=== PATIENT | female | born 1995 | race Caucasian/White ===

== ENCOUNTER 2020-01-22 15:27 | Emergency (ER) | payer OTHER, MEDICAID, SELFPAY ==
[2020-01-22 15:37] VITALS: BP 144/90; PULSE 103; RESP 22; TEMP 37.4; O2SAT 96
--- NOTE | 2020-01-22 17:03 | ED.URI ---
HPI - URI/Sore Throat General Chief Complaint: Upper Respiratory Infection Stated Complaint: sore throat Time Seen by Provider: 01/22/20 17:03 Source: patient and RN notes reviewed Mode of arrival: ambulatory Limitations: no limitations History of Present Illness HPI Narrative: 24-year-old female who presents to [facility] care with complaints of return of sore throat last p.m.. Patient states she was diagnosed with strep throat approximately 10 days ago and was treated with amoxicillin states that she has missed approximately 2 day doses of her amoxicillin. Patient continues to have extreme sore throat with redness and swelling of throat and enlargement of tonsils and low grade temperature elevation. MD elicited complaint: fever and sore throat Pertinent past history: other (strep throat) Onset (ago): day(s) (1) Consistency: progressively worsening Severity: moderate Pain scale (0-10): 6 Able to tolerate fluids by mouth: Yes Exacerbating factors: swallowing Relieving factors: nothing Associated symptoms: fever and sore throat Treatments prior to arrival: antibiotics Related Data Home Medications Medication Instructions Recorded Confirmed Singulair 01/22/20 amoxicillin 01/22/20 Allergies Allergy/AdvReac Type Severity Reaction Status Date / Time No Known Allergies Allergy Unverified 01/22/20 16:16 Review of Systems Review of Systems: Narrative: CONSTITUTIONAL: positive fever, chills, or sweats. EYES: Denies visual changes, redness, or discharge. ENT: Denies rhinorrhea, congestion, positive sore throat, no otalgia. CARDIOVASCULAR: Denies chest pain, palpitations, or edema. RESPIRATORY: Denies cough or dyspnea. GASTROINTESTINAL: Denies abdominal pain, nausea, vomiting, or diarrhea. GENITOURINARY: Denies dysuria or hematuria. SKIN: Denies rash or itching. MUSCULOSKELETAL: Denies back pain, joint pain, or myalgia. NEUROLOGIC: Denies headache, numbness, or weakness. PSYCHIATRIC: positive history anxiety or depression. [facility] Past Medical History Medical History (Updated 01/25/20 @ 15:25 by Veronica Meeks NP) ADHD Bronchitis Kidney stone induced hypertension UTI (urinary tract infection) Surgical History Surgical History (Updated 01/25/20 @ 15:26 by Veronica Meeks NP) History of surgical removal of ganglion cyst Social History Social History (Updated 01/25/20 @ 15:25 by Veronica Meeks NP) Years smoked: 9 Smoking status: Current every day smoker Tobacco type: cigarettes Living arrangements: with family Gender identity (if verbalized by the patient): Male Comments At time of signature, agree with nursing past medical, surgical, social and family history. There is no relevant family history pertinent to the presenting complaint Exam Narrative: Exam Narrative: GENERAL: Well-appearing, well-nourished, and in no acute distress. HEAD: Normocephalic, atraumatic. EYES: PERRLA and EOMI. ENT: Nares clear, no rhinorrhea or epistaxis. Mucous membranes moist.TMs normal with good light reflex, throat red, no exudate or lesions, tonsils red and swollen NECK: Supple.lymphadenopathy CHEST: Clear to auscultation. No respiratory distress.SAO2 96% on room air HEART: Regular rate and rhythm. No murmur heard. Normal peripheral pulses. ABDOMEN: Soft, nontender, nondistended, normal active bowel sounds. EXTREMITIES: Normal range of motion. No edema. SKIN: Warm, dry, no rash. NEURO: No focal deficits. Alert and oriented x3. Course Vital Signs Vital signs: Vital Signs Temperature 37.4 C 01/22/20 15:37 Pulse Rate 103 H 01/22/20 15:37 Respiratory Rate 22 H 01/22/20 15:37 Blood Pressure 144/90 H 01/22/20 15:37 Pulse Oximetry 96 01/22/20 15:37 Temperature 37.4 C 01/22/20 15:37 Pulse Rate 103 H 01/22/20 15:37 Respiratory Rate 22 H 01/22/20 15:37 Blood Pressure 144/90 H 01/22/20 15:37 Pulse Oximetry 96 01/22/20 15:37 MDM - URI/Sore Throat Differential Diag
== END 2020-01-22 17:20 | disposition home or self-care (01) ==
PROVIDERS: Emergency Provider Registered Nurse
DX: J02.0 Streptococcal pharyngitis (principal); F17.210 Nicotine dependence, cigarettes, uncomplicated
CPT/HCPCS: 87880; 99213; G0463

== ENCOUNTER 2020-05-20 10:36 | Emergency (ER) | payer OTHER, MEDICAID, SELFPAY ==
--- NOTE | ~2020-05-20 | XR_ITS ---
EXAMINATION: XR chest 2V DATE: 05/20/2020 11:31 INDICATION: Cough, chills and body aches TECHNIQUE: frontal and lateral views of the chest were obtained. COMPARISON: Chest radiograph dated 07/21/2015 FINDINGS: The lungs remain clear with no focal airspace opacities, pulmonary edema, pleural effusion or pneumot horax. The cardiomediastinal silhouette is normal. Visualized bones and soft tissues are unremarkable . IMPRESSION: 1. No acute cardiopulmonary disease. Reviewed, dictated and finalized at location A.
[2020-05-20 10:48] VITALS: BP 139/79; PULSE 114; RESP 20; TEMP 37.2; O2SAT 94
--- NOTE | 2020-05-20 11:19 | ED.URI ---
HPI - URI/Sore Throat General Chief Complaint: Upper Respiratory Infection Stated Complaint: throat chills and aches Time Seen by Provider: 05/20/20 10:53 Source: patient and RN notes reviewed Mode of arrival: ambulatory Limitations: no limitations History of Present Illness HPI Narrative: Patient presents today complaining of a sore throat and subjective fever since yesterday afternoon. Patient also has a cough, but states she coughs, all the time due to her smoking. She smokes 1 pack/day x 14 years. She does report some shortness of breath in the mornings, but this improves throughout the day. Her cough is productive. States she has a history of allergy asthma , for which she uses an albuterol inhaler and Singulair. She has been using her albuterol inhaler more frequently. She currently rates her sore throat sick/10 and has tried no other [id number] medications for symptoms prior to arrival. No known hx of COVID-19 exposure. MD elicited complaint: sore throat Related Data Home Medications Medication Instructions Recorded Confirmed Singulair 01/22/20 dextroamphetamine-amphetamine PO 05/20/20 [Adderall XR] escitalopram oxalate mg 05/20/20 Allergies Allergy/AdvReac Type Severity Reaction Status Date / Time No Known Allergies Allergy Verified 05/20/20 11:07 Review of Systems Review of Systems: Narrative: CONSTITUTIONAL: Denies chills, or sweats.+Body aches, subjective fever EYES: Denies visual changes, redness, or discharge. ENT: Denies rhinorrhea, congestion,or otalgia.+Sore throat CARDIOVASCULAR: Denies chest pain, palpitations, or edema. RESPIRATORY: +Cough, shortness of breath in the mornings, wheezing GASTROINTESTINAL: Denies abdominal pain, nausea, vomiting, or diarrhea. GENITOURINARY: Denies dysuria or hematuria. SKIN: Denies rash, itching, or wounds. MUSCULOSKELETAL: Denies back pain, joint pain, or myalgia. NEUROLOGIC: Denies headache, numbness, tingling, or weakness. PSYCH: Denies depression or anxiety. [facility] Past Medical History Medical History (Updated 05/20/20 @ 11:45 by Dilam Cedeno, [employer], [employer]) ADHD Allergy-induced asthma Bronchitis Kidney stone induced hypertension Seasonal allergic conjunctivitis UTI (urinary tract infection) Surgical History Surgical History (Updated 01/25/20 @ 15:26 by Veronica Meeks NP) History of surgical removal of ganglion cyst Social History Social History (Updated 01/25/20 @ 15:25 by Veronica Meeks NP) Years smoked: 9 Smoking status: Current every day smoker Tobacco type: cigarettes Gender identity (if verbalized by the patient): Female Comments At time of signature, I have reviewed and agree with nursing past medical, surgical, social and family history unless otherwise noted. Please see nursing chart for further information. There is no relevant family history pertinent to the presenting complaint Exam Narrative: Exam Narrative: GENERAL: Mildly ill-appearing, well-nourished, and in no acute distress. HEAD: Normocephalic, atraumatic. EYES: EOMI. No redness or drainage. Conjunctivae normal. ENT: Mucous membranes pink and moist. Nares clear. No rhinorrhea. TMs normal bilaterally. Throat mildly erythematous and edematous without exudate. Uvula midline. NECK: Normal AROM. Supple. No lymphadenopathy. CHEST: No respiratory distress. Inspiratory and expiratory wheezing throughout. Diminished in left lower lobe. HEART: Regular rhythm. +Tachycardia. No murmur appreciated. Normal peripheral pulses. MUSCULOSKELETAL: No bony tenderness. EXTREMITIES: Normal range of motion. No edema. SKIN: Warm, dry, no rash. Capillary refill normal. Normal skin turgor. NEURO: No focal deficits. Alert and oriented x3. Gait steady. PSYCH: Normal affect. No signs of depression or anxiety. Course Course Emergency Course: Due to recent exposure and symptoms, patient may have a possible COVID-19 infection. Signs and sympto
== END 2020-05-20 12:01 | disposition home or self-care (01) ==
PROVIDERS: Emergency Provider Nurse Practitioner; PCP Nurse Practitioner Family
DX: Z20.828 Contact with and (suspected) exposure to other viral communicable diseases (principal); J02.9 Acute pharyngitis, unspecified; J40 Bronchitis, not specified as acute or chronic; F17.210 Nicotine dependence, cigarettes, uncomplicated
CPT/HCPCS: 71046; 87081; 87880; 99213; G0463

== ENCOUNTER 2021-01-14 09:56 | Emergency (ER) | payer OTHER, SELFPAY ==
[2021-01-14 10:14] VITALS: BP 105/78; PULSE 78; RESP 18; TEMP 36.2; O2SAT 98
--- NOTE | 2021-01-14 10:24 | ED.URI ---
HPI - URI/Sore Throat General Chief Complaint: Upper Respiratory Infection Stated Complaint: COVID Symptoms Time Seen by Provider: 01/14/21 10:24 Source: patient Mode of arrival: ambulatory Limitations: no limitations History of Present Illness HPI Narrative: Suri Mata is a 25 yo female with no PMH who [facility] with upper respiratory symptoms since Friday, rarely patient in nose or sore throat some mucus in her throat and pain in her left ear, she rates her pain about a 4 out of 10, she sounds congested Related Data Home Medications Medication Instructions Recorded Confirmed dextroamphetamine-amphetamine 10 mg PO DAILY 05/20/20 01/14/21 [Adderall XR] escitalopram oxalate 5 mg PO DAILY 05/20/20 01/14/21 Allergies Allergy/AdvReac Type Severity Reaction Status Date / Time amoxicillin AdvReac Other Verified 01/14/21 10:35 Review of Systems Review of Systems: Narrative: CONSTITUTIONAL: Denies fever, chills, sweats. Has fatigue EYES: Denies visual changes, redness, discharge. ENT: Has rhinorrhea, has congestion, has sore throat, left otalgia. CARDIOVASCULAR: Denies chest pain, palpitations, edema. RESPIRATORY: Denies dyspnea, wheezing, cough GASTROINTESTINAL: Denies abdominal pain, nausea, vomiting, diarrhea. GENITOURINARY: Denies dysuria, hematuria, abnormal discharge SKIN: Denies rash or itching. NEUROLOGIC: Denies numbness, or focal weakness. PSYCHIATRIC: Denies anxiety or depression. 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 HEAD: normocephalic, atraumatic. EYES: Sclera clear/white. Vision is grossly intact. EARS: External ears normal, auditory canals clear and without drainage, TMs normal without perforation. Hearing grossly intact. Pain in front of left ear NOSE: External nose normal without nasal discharge, nares with redness, has rhinorrhea. THROAT: Mucous membranes moist, posterior pharynx very very erythematous with mild edema; left submandibular lymph node is enlarged and tender NECK: Neck supple, CARDIOVASCULAR: Regular rate and rhythm without murmurs, gallops, or rubs. RESPIRATORY: Clear to auscultation. Breath sounds equal bilaterally. No wheezes, rales, or rhonchi. GASTROINTESTINAL: Abdomen soft, SKIN: warm, intact with no suspicious lesions or rash, good texture and turgor. NEURO: awake, alert, and oriented to person, place and time. There were no obvious focal neurologic abnormalities. Steady gait EXTREMITIES: Normal range of motion. BACK: Nontender without deformity Course Course Emergency Course: [facility] with upper respiratory symptoms that started on Friday which include nasal congestion sore throat and fatigue Rapid Covid test -neg PCR Covid done and sent Strep test -neg Started on zyetec, mucinex, prednisone, viscous lidocaine, tessalon perles Patient to quarantine awaiting PCR results Vital Signs Vital signs: Vital Signs Temperature 97.2 F L 01/14/21 10:14 Pulse Rate 78 01/14/21 10:14 Respiratory Rate 18 01/14/21 10:14 Blood Pressure 105/78 01/14/21 10:14 Pulse Oximetry 98 01/14/21 10:14 Temperature 97.2 F L 01/14/21 10:14 Pulse Rate 78 01/14/21 10:14 Respiratory Rate 18 01/14/21 10:14 Blood Pressure 105/78 0
[2021-01-15 18:21] LABS: SARS-CoV-2 RNA PCR Negative
== END 2021-01-14 10:56 | disposition home or self-care (01) ==
PROVIDERS: Emergency Provider Nurse Practitioner; PCP Nurse Practitioner Family
DX: J02.9 Acute pharyngitis, unspecified (principal); J06.9 Acute upper respiratory infection, unspecified; Z20.822 Contact with and (suspected) exposure to COVID-19; F17.200 Nicotine dependence, unspecified, uncomplicated; J45.909 Unspecified asthma, uncomplicated; F90.9 Attention-deficit hyperactivity disorder, unspecified type
CPT/HCPCS: 87081; 87426; 87880; 99213; C9803; G0463; U0003; U0005

== ENCOUNTER 2021-03-11 11:09 | Emergency (ER) | payer OTHER, SELFPAY ==
[2021-03-11 11:13] VITALS: BP 114/68; PULSE 89; RESP 20; TEMP 36.6; O2SAT 100
--- NOTE | 2021-03-11 11:15 | ED.URI ---
HPI - URI/Sore Throat General Chief Complaint: Upper Respiratory Infection Stated Complaint: sore throat/body aches/cough Time Seen by Provider: 03/11/21 11:30 Source: patient and RN notes reviewed Mode of arrival: ambulatory Limitations: no limitations History of Present Illness HPI Narrative: 25-year-old female presents with concern for cough, sore throat, body aches that started yesterday. Reports postnasal drainage, rhinorrhea. She denies fever, chills, sweats, loss of sense of taste or smell. Reports her boyfriend has similar symptoms, however has not been diagnosed with Covid or strep throat. She denies any [id number] medical interventions. MD elicited complaint: cough Related Data Home Medications Medication Instructions Recorded Confirmed dextroamphetamine-amphetamine 10 mg PO DAILY 05/20/20 03/11/21 [Adderall XR] escitalopram oxalate 5 mg PO DAILY 05/20/20 03/11/21 Allergies Allergy/AdvReac Type Severity Reaction Status Date / Time amoxicillin AdvReac Other Verified 03/11/21 11:13 Review of Systems Review of Systems: Narrative: CONSTITUTIONAL: Denies malaise, chills, sweats, or fever. EYES: Denies visual changes, redness, or discharge. ENT: Reports rhinorrhea, sore throat. Denies congestion, sinus pain, otalgia CARDIOVASCULAR: Denies chest pain, palpitations, or edema. RESPIRATORY: Reports cough. Denies dyspnea. GASTROINTESTINAL: Denies abdominal pain, nausea, vomiting, diarrhea SKIN: Denies rash or itching. MUSCULOSKELETAL: Denies myalgia. NEUROLOGIC: Denies headache. All systems reviewed & are unremarkable except as noted in HPI and below PMFSH Past Medical History Medical History ADHD Allergy-induced asthma Bronchitis Kidney stone induced hypertension Seasonal allergic conjunctivitis UTI (urinary tract infection) Surgical History Surgical History History of surgical removal of ganglion cyst Social History Social History (Updated 01/14/21 @ 10:33 by Genny Baird CNP) Years smoked: 9 Smoking status: Current every day smoker Tobacco type: e-cigarettes/vaping Gender identity (if verbalized by the patient): Female Comments At time of signature, agree with nursing past medical, surgical, social and family history. There is no relevant family history pertinent to the presenting complaint Exam Narrative: Exam Narrative: GENERAL: Well-appearing, well-nourished, and in no acute distress. HEAD: Normocephalic EYES: PERRLA, conjunctivae clear ENT: Nares clear, turbinates erythematous, clear discharge. Mucous membranes moist. TM pearly nance with sharp light reflex bilaterally; no tragal tenderness. Oropharynx erythematous without lesions. Tonsils not enlarged and without exudate, no drooling, no hoarseness, no trismus, uvula midline. NECK: Supple. No lymphadenopathy CHEST: Clear to auscultation, breath sounds equal. No wheezing, rhonchi, rales, or stridor. No respiratory distress, speaks in full sentences. HEART: Regular rate and rhythm. No murmur heard. SKIN: Warm, dry, no rash. NEURO: Alert and oriented x3. PSYCH: Normal mood and affect Course Course Emergency Course: Patient is aware of diagnosis, understands and agrees to treatment plan. Anticipatory guidance given. Patient agrees to follow-up as directed and is aware of reasons to seek care at the emergency department. Portions of this record may have been created with voice recognition software Vital Signs Vital signs: Vital Signs Temperature 97.9 F 03/11/21 11:13 Pulse Rate 89 03/11/21 11:13 Respiratory Rate 03/11/21 11:13 Blood Pressure 114/68 03/11/21 11:13 Pulse Oximetry 100 03/11/21 11:13 Temperature 97.9 F 03/11/21 11:13 Pulse Rate 89 03/11/21 11:13 Respiratory Rate 03/11/21 11:13 Blood Pressure 114/68 03/11/21 11:13 Pulse Oximetry 100 03/11/21 11:13
[2021-03-12 19:57] LABS: SARS-CoV-2 RNA PCR Negative
== END 2021-03-11 11:54 | disposition home or self-care (01) ==
PROVIDERS: Emergency Provider Nurse Practitioner; PCP Nurse Practitioner Family
DX: J02.9 Acute pharyngitis, unspecified (principal); J06.9 Acute upper respiratory infection, unspecified; Z20.822 Contact with and (suspected) exposure to COVID-19; F90.9 Attention-deficit hyperactivity disorder, unspecified type; J45.990 Exercise induced bronchospasm; F17.200 Nicotine dependence, unspecified, uncomplicated
CPT/HCPCS: 87081; 87426; 87804; 87880; 99213; C9803; G0463; U0003; U0005

== ENCOUNTER 2022-02-01 04:33 | Day surgery (SDC) | payer OTHER, SELFPAY ==
--- NOTE | 2022-01-31 16:59 | PC.NURSE ---
Report to the Outpatient Waiting Room, entrance under the green pavilion located off [facility], at time __1100 on date __02/01/22 . OR Time: _1299 . - You and your visitor will be asked a series of questions to screen for COVID 19 for your protection. - A mask is required within the hospital. Preoperative COVID Testing Requirements: No COVID Test needed if: (proof is required; if not received patient will have Rapid Test prior to entry) - Patient has received COVID Vaccine at least 14 days prior to procedure date or - Patient has positive COVID test result within last 90 days of surgery date. COVID Test needed if above criteria is not met If not COVID vaccinated a COVID test must be conducted within 72 hours of surgery and patient is asked to isolate self from time of testing until procedure. You will go to the [facility] for your COVID testing. The [facility] site is located at the corner of [address] from [facility]. You will only be called if COVID results are positive and your surgeon may reschedule your elective surgery date. Patients may have clear liquids (water, carbonated beverages, clear teas, apple juice) until 3 hours prior to surgery with a maximum of 20 ounces. - No food from midnight until time of surgery - Infants may have breast milk until 4 hours before surgery, infant formula 6 hours prior to surgery. - Children will be allowed to drink immediately following surgery. If applicable, please bring a bottle or sippy cup to assist with drinking. Juice, water, soda, and popsicles are readily available. For infants on formula, please bring formula the day of surgery. Pacifiers are allowed. Take the following medications with a SIP of water the morning of surgery: NONE Medications to discontinue per physician NONE Date to take last dose____NONE Please no make-up, nail german, hairspray, perfume, deodorant, or body powder the day of surgery. No jewelry (including any body piercings) or valuables the day of surgery, leave them at home. Please take a shower or bath the night before, or the morning of, surgery with an antibacterial soap. Wear comfortable, loose fitting clothing. Children are encouraged to wear pajamas. - Jewelry must be removed prior to entering the operating room. Rings and piercings that are not removed may be cut off. - The hospital will not accept responsibility for valuables. - Please leave all valuables, including medications, at home the day of surgery. If you are going home after surgery, a licensed driver operator must drive you home. - NO public transportation without another adult. - We recommend that an adult stay with you for 24 hours following discharge. - We also recommend that you do not drive, make important decision, drink alcoholic beverages, or take any drugs that were not prescribed by your health care provider for at least 24 hours after your discharge time. For Pediatric surgeries, we recommend two adults accompany the child home (only one inside the building at this time). One visitor will be allowed to accompany the patient into the hospital. Patients visitor will be instructed to remain with patient at all times or leave the building. We will allow the visitor to come back to the postoperative area when patient is ready. Follow any additional instructions given to you from your surgeon. Telephone instructions given to PATIENT and asked if any additional questions and then verbalized understanding. Patient advised to call surgeon office or pre surgery nurse liaison [phone] if any additional questions.
[2022-01-31 17:07] VITALS: BMI 35.6
--- NOTE | 2022-02-01 10:43 | PM.IMHP ---
H&P: HPI History of Present Illness Date/Time: 02/01/22 10:43 Chief Complaint: early loss Narrative: 26 yo who presents for suction D&C for early loss. Pt [facility] and viability US. She states they identified a gestational sac but no YS or embryo. Pt has a 2 wk follow up that showed no interval growth. Pt then presented to me. We started to trend her Beta HCG levels and noted they were decreasing. Follow up US in our office again showed a GS with no YS or embryo. Pt started having some bleeding as well. Review of Systems Cardiovascular: Cardiovascular: Denies chest pain, Denies leg edema, Denies palpitations, Denies dyspnea and Denies dyspnea on exertion Respiratory: Respiratory: Denies cough, Denies dyspnea and Denies dyspnea on exertion Gastrointestinal: Gastrointestinal: Denies abdominal pain, Denies constipation, Denies diarrhea, Denies nausea and Denies vomiting Genitourinary: Genitourinary: Denies hematuria, Denies urinary frequency, Denies dysuria, Denies pelvic pain, Denies urinary incontinence and Denies vaginal discharge Neurologic: Reports system reviewed and no additional complaints, except as documented Psychiatric: Psychiatric: Reports no additional psychiatric complaints Endocrine: Endocrine: Denies palpitations PMFSH Past Medical History Medical History ADHD Allergy-induced asthma Bronchitis Kidney stone induced hypertension Seasonal allergic conjunctivitis UTI (urinary tract infection) Surgical History Surgical History History of surgical removal of ganglion cyst Social History Social History (Updated 01/14/21 @ 10:33 by Genny Baird CNP) Years smoked: 9 Smoking status: Never smoker Tobacco type: e-cigarettes/vaping Alcohol intake: current Drinks per week: 1 Substance use: current Substance use type: marijuana Other substance usage details: 5 TIMES A WEEK Living arrangements: with family Gender identity (if verbalized by the patient): Female Spiritual care concerns: No Meds Home Medications and Allergies Home Medications Medication Instructions Recorded Confirmed Type No Home Medications 01/31/22 01/31/22 History Allergies Allergy/AdvReac Type Severity Reaction Status Date / Time No Known Allergies Allergy Verified 01/31/22 16:54 Exam Const: General: no acute distress Eyes: EOM: EOMs intact bilaterally Neck: Neck: supple Thyroid: thyroid normal Chest: Breast/axilla inspection: normal inspection of the breasts Breast/axilla palpation: normal palpation of the breasts, normal palpation of the axillae and no axillary lymphadenopathy Resp: Effort & Inspection: normal respiratory effort Auscultation: clear to auscultation bilaterally Cardio: Rate: regular rate Rhythm: regular rhythm GI: Inspection: non-distended GI Palp: Yes Soft to palpation, No Tenderness to palpation present (GI) and No Guarding due to palpation present (GI) Auscultation: normal bowel sounds : General: No bladder normal to palpation External Female Exam: normal external appearance Speculum Exam - Vagina: normal vaginal discharge and No vaginal bleeding Speculum Exam - Cervix: nontender Bimanual exam- vagina & uterus: No bladder normal to palpation and No Cervical tenderness present OB/external & speculum: No vaginal bleeding Skin: General skin exam: normal color and no rashes or lesions noted Neuro: Cognition (Neuro): normal cognition Speech: normal speech Extrem: General: normal to inspection and no edema Psych: Mental Status: mental status grossly normal Affect: normal affect Assessment and Plan Assessment and plan (1) Incomplete : Code(s): O03.4 - Incomplete spontaneous without complication Status: Acute Assessment and Plan: Pt has
[2022-02-01 11:20] VITALS: BP 113/61; PULSE 73; RESP 18; TEMP 36.7; O2SAT 100
[2022-02-01] MEDS: LACTATED RINGERS 1,000 ML 30 ML IV CONT (11:29)
[2022-02-01] MEDS: ACETAMINOPHEN 500 MG TABLET 1000 MG PO (11:30)
[2022-02-01 11:40] LABS: Hematocrit 39.1 % (37.0-47.0); Hemoglobin 13.4 g/dL (12.0-15.0)
--- NOTE | 2022-02-01 11:42 | P.PNAN_ITS ---
Anes - Initial Pre Proc Eval Procedure: Operation Date: 02/01/22 13:00 Proposed Procedures p Suction Dilation and Curettage - Frantz Keenan MD Date/Time: 02/01/22 11:42 Surgeon: Frantz Keenan MD Pre Op Diagnosis: missed ab Patient Data Age: 26 Gender: F Height: 1.68 m Weight: 120.8 kg Last Vital Signs Temp 36.7 C 02/01/22 11:20 Pulse 73 02/01/22 11:20 Resp 18 02/01/22 11:20 BP 113/61 02/01/22 11:20 Pulse Ox 100 02/01/22 11:20 Allergies Allergy/AdvReac Type Severity Reaction Status Date / Time No Known Allergies Allergy Verified 02/01/22 11:10 Home Medications Medication Instructions Recorded Confirmed Type No Home Medications 01/31/22 02/01/22 History Laboratory Tests 02/01/22 11:23 Hgb Pending Hct Pending Patient hx anesthesia problems: none Family hx anesthesia problems: none Results Review: All pre-operative results and documents have been reviewed as part of the pre-operative evaluation. [facility] Past Medical History Medical History ADHD Allergy-induced asthma Bronchitis Kidney stone induced hypertension Seasonal allergic conjunctivitis UTI (urinary tract infection) Surgical History Surgical History History of surgical removal of ganglion cyst Social History Social History (Updated 02/01/22 @ 11:42 by Jean Olsen MD) Years smoked: 9 Smoking status: Current every day smoker Tobacco type: e-cigarettes/vaping Alcohol intake: current Drinks per week: 1 Substance use: current Substance use type: marijuana Other substance usage details: 5 TIMES A WEEK Living arrangements: with family Gender identity (if verbalized by the patient): Female Spiritual care concerns: No Anes - Eval Final PreProcedure Day of Procedure 02/01/22 11:42 Patient weight: morbidly obese Heart: regular rate and rhythm Lungs: clear to auscultation Airway: Mallampati scale Neurological: alert and oriented Last oral intake: >/= 8 hours ASA classification: III Emergent: no Anesthetic plan: proceed Anesthesia type and monitoring: general GIVS and standard monitoring Results Review: All pre-operative results and documents have been reviewed as part of the pre-operative evaluation. Informed Consent: The patient's anesthetic plan and its attendant risks and benefits were discussed with the patient/family/POA. Questions were solicited and answers provided to the satisfaction of the patient/family/POA.
--- NOTE | 2022-02-01 12:55 | WPDHPUPDATE1 ---
History and Physical Update Update Date/Time: 02/01/22 12:55 History and Physical has been reviewed, including an updated exam of the patient. There are NO changes in the patient's condition. Risks, benefits, and alternatives have been discussed and questions answered. Patient agrees to proceed with procedure.
[2022-02-01 13:26] VITALS: BP 136/81; PULSE 83; RESP 16; O2SAT 95
--- NOTE | 2022-02-01 13:26 | P.OP_ITS ---
Procedure Note - Detailed Date of Procedure 02/01/22 Pre-op Diagnosis early loss Post-op Diagnosis Same Procedure Performed Suction Dilation & curettage Surgeon Frantz Keenan MD Anesthesia General Indications spontaneous missed on pelvic US Findings intrauterine products of conception Description of Procedure The patient was taken to the operating room after a missed had been noted on on transvaginal ultrasound. The risks, benefits and alternatives of the procedure were reviewed with the patient and informed consent was obtained. The patient was taken to the OR and anesthesia was noted to be adequate. The patient was placed in the dorsolithotomy position. Pelvic exam was performed with findings noted above. The patient was prepped and draped in the usual sterile fashion. Sterile speculum was placed in the vagina and the cervix was grasped with a tenaculum. Paracervical block was performed with 1% lidocaine. The cervix was dilated further to allow for passage of a 8 mm suction curette. The 8 mm suction curette was gently advanced to the fundus, suction was activated, and the tip was rotated while being withdrawn to clear the uterus of products. This suction process was repeated 3 additional times due to the quantity of material in the uterus. The sharp curette was introduced and advanced to the fundus to remove any remaining products. The suction curette was reintroduced one final time to ensure all products had been removed. The tenaculum was removed. Good hemostasis was noted. Instrument, sponge, and sharp counts were correct. Patient tolerated the proced ure well and was taken to the recovery room in stable condition. Estimated Blood Loss 50 Urine Output 400 Packing No Pathology Yes (Products of conception ) Complications No immediate complications Condition Stable Disposition PACU
[2022-02-01 13:45] VITALS: BP 145/81; PULSE 71; RESP 16; O2SAT 98
[2022-02-01] MEDS: oxyCODONE HCL (*CRX) 5 MG TAB IR PO (13:57)
[2022-02-01 14:15] VITALS: BP 128/80; PULSE 64; RESP 16
[2022-02-01] MEDS: RHO(D) IMMUNE GLOBULIN 300 MCG/2 ML SYRINGE IM (14:30)
== END 2022-02-01 14:45 | disposition home or self-care (01) ==
PROVIDERS: PCP Nurse Practitioner Family; Visit Provider Student in an Organized Health Care Education/Training Program
PROC: (CPT 59820; principal; 2022-02-01 13:00)
DX: O02.1 Missed abortion (principal); F90.9 Attention-deficit hyperactivity disorder, unspecified type; F17.290 Nicotine dependence, other tobacco product, uncomplicated; F12.90 Cannabis use, unspecified, uncomplicated
CPT/HCPCS: 59820; 36415; 85014; 85018; 85461; 88305; 90384; A9270; J1100; J1885; J2250; J2270; J2405; J2704; J2790; J7120

== ENCOUNTER 2023-01-09 14:24 | Emergency (ER) | payer OTHER, SELFPAY ==
--- NOTE | 2023-01-09 14:27 | ED.URI ---
HPI - URI/Sore Throat General Chief Complaint: Upper Respiratory Infection Stated Complaint: Cough/Sinus Congestion Time Seen by Provider: 01/09/23 14:27 Source: patient and RN notes reviewed History of Present Illness HPI Narrative: Patient is a 11-year-old female who presents to urgent care with complaints of sinus congestion and cough. Patient states it started on Friday. Reports of some chills but denies any fever, nausea or vomiting. Patient also states that she has been wheezing the last couple of nights. Patient has been taking DayQuil and NyQuil. No other acute complaints. No acute distress noted. Patient aware of the plan of care. Some parts of this dictation were generated by voice recognition software and may contain typographical and/or grammatical inaccuracies. Related Data Home Medications Medication Instructions Recorded Confirmed dulaglutide 0.75 mg/0.5 mL 0.75 mg subcut WEEKLY 01/09/23 01/09/23 subcutaneous pen injector (Trulicity) Allergies Allergy/AdvReac Type Severity Reaction Status Date / Time No Known Allergies Allergy Verified 01/09/23 14:46 Review of Systems Review of Systems: CONSTITUTIONAL: Denies fever, chills, or sweats. EYES: Denies visual changes, redness, or discharge. ENT: Reports of minor sinus pressure/congestion, postnasal drainage CARDIOVASCULAR: Denies chest pain, palpitations, or edema. RESPIRATORY: Reports cough and wheezing GASTROINTESTINAL: Denies abdominal pain, nausea, vomiting, or diarrhea. GENITOURINARY: Denies dysuria or hematuria. SKIN: Denies rash or itching. MUSCULOSKELETAL: Denies back pain, joint pain, or myalgia. NEUROLOGIC: Denies headache, numbness, or weakness. All other systems reviewed are negative, except as documented in HPI. [facility] Past Medical History Medical History ADHD Allergy-induced asthma Bronchitis Kidney stone induced hypertension Seasonal allergic conjunctivitis UTI (urinary tract infection) Surgical History Surgical History History of surgical removal of ganglion cyst Social History Social History (Updated 02/01/22 @ 11:42 by Jean Olsen MD) Years smoked: 9 Smoking status: Current every day smoker Tobacco type: e-cigarettes/vaping Alcohol intake: current Drinks per week: 1 Substance use: current Substance use type: marijuana Other substance usage details: 5 TIMES A WEEK Living arrangements: with family Gender identity (if verbalized by the patient): Female Spiritual care concerns: No Comments At the time of my signature, I reviewed and agree with the nursing past medical, surgical, social, and family history. There is no relevant family history pertinent to the patient complaint. Exam Narrative: GENERAL: This is a well-nourished, well-developed patient, in no apparent distress. HEAD: normocephalic, atraumatic. EYES: PERRL. Sclera clear/white. Vision is grossly intact. EARS: External ears normal, auditory canals clear and without drainage, TMs normal without perforation. Hearing grossly intact. NOSE: External nose normal with no obvious nasal discharge. Mild bilateral erythema cares with clear yellow rhinorrhea THROAT: Mucous membranes moist, posterior pharynx clear. Which is moderate postnasal drainage NECK: Neck supple, non-tender without lymphadenopathy CARDIOVASCULAR: Regular rate and rhythm without murmurs, gallops, or rubs. RESPIRATORY: Inspiratory and expiratory wheezes throughout SKIN: warm, intact with no suspicious lesions or rash, good texture and turgor. NEURO: awake, alert, and oriented to person, place and time. There were no obvious focal neurologic abnormalities. EXTREMITIES: No clubbing, cyanosis, or edema. Course Course Level of Care: Express Care Visit Vital Signs Vital signs: Vital Signs Temperature 97.8 F 01/09/23 14:29 Pulse Rate 99 02/
[2023-01-09 14:29] VITALS: BP 144/88; PULSE 99; RESP 16; TEMP 36.6; O2SAT 100
== END 2023-01-09 14:53 | disposition home or self-care (01) ==
PROVIDERS: Emergency Provider Nurse Practitioner Family; PCP Nurse Practitioner Family
DX: J40 Bronchitis, not specified as acute or chronic (principal); F17.290 Nicotine dependence, other tobacco product, uncomplicated
CPT/HCPCS: 99213; G0463

== ENCOUNTER 2024-05-21 11:46 | Emergency (ER) | payer OTHER, SELFPAY ==
[2024-05-21 11:55] VITALS: BP 144/66; PULSE 97; RESP 16; TEMP 36.4; O2SAT 100
--- NOTE | 2024-05-21 12:29 | ED.GENADULT ---
HPI - General Adult General Chief complaint: Skin/Abscess/Foreign Body Stated complaint: Rash on thighs and vaginal region Source: patient Mode of arrival: ambulatory Limitations: no limitations History of Present Illness HPI narrative: Patient presents for evaluation pruritic rash to the suprapubic region and bilateral inguinal regions since May 15. She had a waxing procedure done prior to that and spent a prolonged amount of time in a wet bathing suit prior to the time of symptom onset. She attempted to treat with hydrocortisone cream without much improvement thereafter. Related Data Home Medications Medication Instructions Recorded Confirmed dulaglutide 0.75 mg/0.5 mL 0.75 mg subcut WEEKLY 01/09/23 01/09/23 subcutaneous pen injector (Trulicity) Allergies Allergy/AdvReac Type Severity Reaction Status Date / Time No Known Allergies Allergy Verified 01/09/23 14:46 Review of Systems Review of Systems: CONSTITUTIONAL: Denies fever, chills, or sweats. EYES: Denies visual changes, redness, or discharge. ENT: Denies rhinorrhea, congestion, sore throat, or otalgia. CARDIOVASCULAR: Denies chest pain, palpitations, or edema. RESPIRATORY: Denies cough or dyspnea. GASTROINTESTINAL: Denies abdominal pain, nausea, vomiting, or diarrhea. GENITOURINARY: Denies dysuria or hematuria. SKIN: Reports pruritic rash to the suprapubic region and bilateral inguinal regions MUSCULOSKELETAL: Denies back pain, joint pain, or myalgia. NEUROLOGIC: Denies headache, numbness, dizziness, or weakness. PSYCHIATRIC: Denies anxiety or depression. [facility] Past Medical History Medical History (Updated 05/21/24 @ 12:32 by PUAL Ortiz, LASHON) ADHD Allergy-induced asthma Bronchitis Kidney stone induced hypertension Seasonal allergic conjunctivitis UTI (urinary tract infection) Surgical History Surgical History H/O lithotripsy History of surgical removal of ganglion cyst Family History Family History Mother Family history non-contributory Social History Social History Years smoked: 9 Smoking status: Current every day smoker Tobacco type: e-cigarettes/vaping Alcohol intake: current Drinks per week: 1 Substance use: current Substance use type: marijuana Other substance usage details: 5 TIMES A WEEK Living arrangements: with family Gender identity (if verbalized by the patient): Female Spiritual care concerns: No Exam Narrative: GENERAL: Well-appearing, well-nourished, and in no acute distress. HEAD: Normocephalic, atraumatic. EYES: PERRLA and EOMI. ENT: Nares clear, no rhinorrhea or epistaxis. Mucous membranes moist. Oropharynx without tonsillar hypertrophy exudate or other lesions. Bilateral TMs pearly nance nonbulging NECK: Supple. No adenopathy or masses. No carotid bruits or JVD CHEST: Clear to auscultation. No respiratory distress. No wheezes rales or rhonchi HEART: Regular rate and rhythm. No murmur heard. Normal peripheral pulses. ABDOMEN: Soft, nontender, nondistended, normal active bowel sounds. EXTREMITIES: Normal range of motion. No edema. SKIN: There is erythema and patchy distribution is to the suprapubic and bilateral inguinal regions with some linear scratch naranjo NEURO: No focal deficits. Alert and oriented x3. PSYCH: Normal mood and affect. Course Course Emergency Course: This is a 28-year-old female who presented for evaluation of pruritic rash to the suprapubic bilateral inguinal regions. Suspect that this is tinea so will provide her with a prescription for ketoconazole. In the event that it is ineffective she can use triamcinolone. Follow-up with primary provider. Go to the ER for worsening symptoms. Patient in agreement plan care. Level of Care: Express Care Visit Vi
== END 2024-05-21 12:34 | disposition home or self-care (01) ==
PROVIDERS: Emergency Provider Nurse Practitioner; PCP Nurse Practitioner Family
DX: L30.9 Dermatitis, unspecified (principal); F17.290 Nicotine dependence, other tobacco product, uncomplicated; F12.90 Cannabis use, unspecified, uncomplicated
CPT/HCPCS: 99213; G0463

== ENCOUNTER 2024-07-20 08:01 | Emergency (ER) | payer MEDICAID, SELFPAY ==
--- NOTE | 2024-07-20 08:03 | ED.URI ---
HPI - URI/Sore Throat General Chief Complaint: Upper Respiratory Infection Stated Complaint: sinus issues Time Seen by Provider: 07/20/24 08:16 Source: patient, RN notes reviewed and old records reviewed Mode of arrival: ambulatory Limitations: no limitations History of Present Illness HPI Narrative: 28-year-old female presents to the [facility] with sinus congestion, pressure, cough, chills that started on Friday Has tried [id number] products with minimal relief. Onset (ago): day(s) (3) Treatments prior to arrival: cold medicine Related Data Allergies Allergy/AdvReac Type Severity Reaction Status Date / Time No Known Allergies Allergy Verified 07/20/24 08:16 Review of Systems Review of Systems: All systems reviewed & are unremarkable except as noted in HPI and below Constitutional: Constitutional: Reports as per HPI and Reports body ache(s) Eyes: Eyes: Reports no additional eye complaints ENT: Reports as per HPI, Reports nasal congestion and Reports sinus pressure Cardiovascular: Cardiovascular: Reports no additional cardiovascular complaints, Denies chest pain and Denies dyspnea Respiratory: Respiratory: Reports as per HPI, Denies chest congestion, Reports cough and Denies dyspnea Gastrointestinal: Gastrointestinal: Reports no additional gastrointestinal complaints, Denies abdominal pain, Denies nausea and Denies vomiting Musculoskeletal: Musculoskeletal: Reports no additional musculoskeletal complaints Integumentary/Breasts: Skin/Breast: Reports system reviewed and no additional complaints, except as docu Neurologic: Reports system reviewed and no additional complaints, except as documented Psychiatric: Psychiatric: Reports no additional psychiatric complaints Allergic/Immunologic: Allergic/Immunologic: Reports no additional allergic/immunologic complaints PMFSH Past Medical History Medical History ADHD Allergy-induced asthma Bronchitis Kidney stone induced hypertension Seasonal allergic conjunctivitis UTI (urinary tract infection) Surgical History Surgical History H/O lithotripsy History of surgical removal of ganglion cyst Family History Family History Mother Family history non-contributory Social History Social History Years smoked: 9 Smoking status: Current every day smoker Tobacco type: e-cigarettes/vaping Alcohol intake: current Drinks per week: 1 Substance use: current Substance use type: marijuana Other substance usage details: 5 TIMES A WEEK Living arrangements: with family Gender identity (if verbalized by the patient): Female Spiritual care concerns: No Comments At the time of my signature, I reviewed and agree with the nursing past medical, surgical, social, and family history. There is no relevant family history pertinent to the patient complaint. Exam Const: General: cooperative, healthy appearing, comfortable, no acute distress, well developed, alert and well nourished Nutritional Appearance: well nourished and obese Orientation/consciousness: patient oriented x3 Limitations: no limitations HENMT: Head: normal to inspection Ears: hearing grossly normal bilaterally, external ears normal, TM's normal bilaterally, EAC's normal, mastoids normal, no periauricular adenopathy and Abnormal EAC present Face/Nose/Sinus: Normal external nose present, Normal nares present, Normal nasal mucous membranes and turbinates present, normal facial exam and face symmetric Face and sinus: normal facial exam and face symmetric Mouth: Yes Normal oral and palatal mucosa present, Yes lip normal and Yes tongue normal Throat: posterior oropharynx normal, tonsils normal, uvula midline and no uvular edema Eyes: General: appearance normal, both eyes
[2024-07-20 08:08] VITALS: BP 126/76; PULSE 91; RESP 20; TEMP 36.9; O2SAT 100
[2024-07-20 08:28] LABS: EDINFLUASCREEN Negative; EDINFLUBSCREEN Negative
== END 2024-07-20 08:27 | disposition home or self-care (01) ==
PROVIDERS: Emergency Provider Nurse Practitioner; PCP Nurse Practitioner Family
DX: U07.1 COVID-19 (principal); F17.290 Nicotine dependence, other tobacco product, uncomplicated; J45.909 Unspecified asthma, uncomplicated
CPT/HCPCS: 87426; 87804; 99213; G0463

== ENCOUNTER 2025-11-08 08:16 | Emergency (ER) | payer OTHER, SELFPAY ==
--- OUTSIDE RECORDS SUMMARY | 2025-11-08 08:18 | XMS_ITS | Clinical Summary ---
Author Organization [facility] Address [address] [place] [address] Phone Care Team Providers Care Underwriting Specialist Name Role Phone Genny Rodriges APRN, CNP Primary Care Provider [phone] Keven Thompson MD Unavailable Allergies No known active allergies Medications phentermine 30 MG Capsule Take 30 mg by mouth daily. Active ondansetron (Zofran ODT) 8 MG TABLET DISPERSIBLE Take 1 Tablet by mouth every 8 hours as needed for Nausea - 1st line. 15 Tablet 07/02/20 21 Active Additional Information Patient not taking.Reported on 02/05/2022 famotidine (PEPCID) 20 MG TabletIndicatio ns:Gastroesopha geal Reflux Disease Take 1 Tablet by mouth every evening. Indications: Gastroesophageal Reflux Disease 30 Tablet 05/15/20 25 Active Active Problems Problem Noted Date Diagnosed Date JABARI (obstructive sleep apnea) 08/08/2021 COVID-19 07/05/2021 Anxiety Migraine Non morbid obesity Resolved Problems Problem Noted Date Diagnosed Date Resolved Date Bronchitis 07/12/2021 Immunizations Immunization Administration Dates Next Due Covid-19, Mrna, Lnp-s, Pf, 30 Mcg/0.3 Ml Dose (Jaime fizer) 10/26/2021 Social History Tobacco Use Types Packs/Day Years Used Date Smoking Tobacco: Former Smokeless Tobacco: Never Comments:vapes Alcohol Use Standard Drinks/Week Comments Yes 0 (1 standard drink = 0.6 oz pur e alcohol) occasional Sexually Active Control Partners Comments Yes Male Comments No Sex and Gender Information Value Date Recorded Sex Assigned at Not on file Legal Sex Female 7:30 PM CDT Gender Identity Not on file Sexual Orientation Not on file Last Filed Vital Signs Vital Sign Reading Time Taken Comments Blood Pressure 134/79 05/15/2025 6:00 PM CDT Pulse 88 05/15/2025 6:00 PM CDT Temperature 36.1 C (97 F) 05/15/2025 4:05 PM CDT Respiratory Rate 13 05/15/2025 6:00 PM CDT Oxygen Saturation 100% 05/15/2025 6:00 PM CDT Inhaled Oxygen Concentration - - Weight 117.5 kg (259 lb) 05/15/2025 4:05 PM CDT Height 167.6 cm (5' 6) 05/15/2025 4:05 PM CDT Body Mass Index 41.8 05/15/2025 4:05 PM CDT Plan of Treatment Health Maintenance Due Date Last Done Comments Hepatitis C Virus (HCV) Screening 1994 Varicella Immunization (2 of 2 - 2-dose childhood series) 1998 1995 Human Papillomavirus (HPV) Immunization (2 - 2-dose series) 01/22/2006 2005 Hepatitis B Immunization (1 of 3 - 19+ 3-dose series) 2013 07/01/2019 Pap Smear 2015 08/31/2010 Cervical Cancer Screening (CCS) 2024 HPV/Cotest 2024 Influenza Immunization (#1) 2025 09/0 11/2018, 12/02/2016 SARS-COV-2 Immunization ( season) 2025 11/20/2021, 10/26/2021 Respiratory Syncytial Virus (RSV) Immunization (Adult) (1 - 1-dose 75+ series) 2069 TdaP Immunization Completed 12/02/2016, 07/15/2015 DTaP/Tdap/Td Immunization Discontinued 2016, 12/02/2016, 07/15/2015 Meningococcal Immunization (ACWY) Aged Out No longer eligible based on patient's age to complete this topic Pneumococcal Immunization Combined Aged Out No longer eligible based on patient's age to complete this topic Rotavirus Immunization Aged Out No lo nger eligible based on patient's age to complete this topic Insurance Advance Directives * Full Code (Latest Code Status on File) Date Activated Date Inactivated Comments 07/04/2021 11:07 PM 07/12/2021 5:35 PM CPR-Full Tr eatment: FULL ARREST: Attempt Resuscitation/CPR wit intubation and mechanical ventilation. PRE-ARREST: Use entire range of life support measures to stabilize the patient. Care Teams Underwriting Specialist Relationship Specialty Start Date End Date Genny Rodriges APRN, CNP PCP - General Family Medicine 07/02/21 Keven Thompson MD [address] [place] [address] Consulting Physician Pulmonary Disease 02/05/22
--- OUTSIDE RECORDS SUMMARY | 2025-11-08 08:18 | XMS_ITS | Clinical Summary ---
Author Organization [facility] Address [address] [place] [address] Care Team Providers Care Assembler Motor Vehicle Name Role Phone Radha Rhoades MD Primary Care Provider [phone] Source Comments [facility],non-owned Affiliates and Associated Physician Practices is amultiple site organization consisting of ambulatory clinics and hospital sitesin [place], [place], [place] and [place]. This disclosure is being madepursuant to the Care Everywhere program and may not contain all information available regarding this patient. 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 [employer] Gender Identity Not on file Sexual Orientation Not on file Plan of Treatment Health Maintenance Due Date Last Done Comments HIV SCREENING 2009 HEPATITIS C SCREENING 07/20/2012 DTAP/TDAP/TD VACCINES (1 - Tdap) 2013 HEPATITIS B VACCINE (1 of 3 - 19+ 3-dose series) 2013 HPV VACCINE (1 - 3-dose SCDM series) 2021 DEPRESSION SCREENING 11/17/2024 COVID-19 VACCINE (3 - 2024-2 6 season) 2025 11/20/2021, 10/26/2021 INFLUENZA VACCINE (#1) 2025 , 12/02/2016 ZOSTER VACCINE (1 of 2) 2044 HIB VACCINE Aged Out No longer eligi ble based on patient's age to complete this topic MENINGOCOCCAL (Group B) VACCINE SHARED DECISION-MAKING Aged Out No longer eligible based on patient's age to complete this topic MENINGOCOCCAL GROUPS A/C/Y/W VACCINE Aged Out No longer eligible b ased on patient's age to complete this topic PNEUMOCOCCAL VACCINE Aged Out No long er eligible based on patient's age to complete this topic Insurance [facility] - [place] [facility] Care Teams Assembler Motor Vehicle Relationship Specialty Start Date End Date Radha Rhoades MD [address] [place] [address] PCP - General 07/16/21
--- OUTSIDE RECORDS SUMMARY | 2025-11-08 08:18 | XMS_ITS | Clinical Summary ---
Author Organization [facility] Address [address] [place] [address] Care Team Providers Care Skills Instructor Name Role Phone Zahira Genny Wilkinson HI LIFT OPERATOR Primary Care Provider [phone] Allergies No known active allergies Medications montelukast (SINGULAIR) 10 mg tabletIndicatio ns:Acute non-recurrent maxillary sinusitis Take 1 tablet (10 mg total) by mouth nightly 30 tablet 3 Active Additional Information Patient not taking.Reported on 06/02/2025 Active Problems Problem Noted Date Diagnosed Date BMI 40.0-44.9, adult 03/04/2024 Migraine with aura and witho ut status migrainosus, not intractable 02/23/2021 Acute bronchitis 11/19/2019 Acute bronchospasm 11/19/2019 Tobacco use disorder 11/19/2019 Immunizations Immunization Administration Dates Next Due Rho (D) Immune Globulin 05/15/2015 Surgical History Surgery Date Site/Laterality Comments CYSTOSCOPY W/ URETERAL STENT PLACEMENT 10/01/2017 Medical History Medical History Date Comments Chronic sinusitis Anxiety Morbid obesity (HCC) Kidney stone Family History Relation Name Status Comments Father Alive Mother Alive Social History Tobacco Use Types Packs/Day Years Used Date Smoking Tobacco: Every Day Cigarettes Smokeless Tobacco: Never Tobacco Cessation:Ready to Q uit: Not Asked; Counseling Given: Not Answered Alcohol Use Standard Drinks/Week Comments No 0 (1 standard drink = 0.6 oz pur e alcohol) AUDIT-C Answer Date Recorded Q1: How often do you have a drink containing alc ohol? Monthly or less 03/04/2024 Q2: How many drinks containi ng alcohol do you have on a typical day when you are drinking? 1 or 2 03/04/2024 Q3: How often do you have si x or more drinks on one occasion? Never 03/04/2024 Personal Safety Answer Date Recorded Have you ever been in or are you currently in a harmful physical or emotional relationship or is someone making you feel afraid or unsafe? 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 Gender Identity Not on file Sexual Orientation Straight 05/31/2021 2: 45 PM CDT Last Filed Vital Signs Vital Sign Reading Time Taken Comments Blood Pressure 112/68 06/02/2025 11:17 AM CDT Pulse 93 06/02/2025 11:17 AM CDT Temperature 36.4 C (97.5 F) 06/02/2025 11:17 AM CDT Respiratory Rate 20 06/02/2025 11:17 AM CDT Oxygen Saturation 99% 06/02/2025 11:17 AM CDT Inhaled Oxygen Concentration - - Weight 108.9 kg (240 lb) 06/02/2025 11:17 AM CDT Height 167.6 cm (5' 6) 06/02/2025 11:17 AM CDT Body Mass Index 38.74 06/02/2025 11:17 AM CDT Plan of Treatment Health Maintenance Due Date Last Done Comments Cervical Cancer Screening 1994 Depression Screening 1994 Hepatitis C Screening 1994 Varicella Vaccines (2 of 2 - 2-dose childhood series) 1998 1995 HPV Vaccines (2 - 2-dose series) 01/22/2006 07/25/20 05 Regular Well Visit/Exam 18-64 2012 Pneumococcal vaccine <65 (1 of 2 - PCV) 2013 Covid-19 Vaccine (2 - season) 07/18/202508/2021 Influenza Vaccine (#1) 2025 07/18/2019, 2016 DTaP/Tdap/Td Vaccine (4 - Td or Tdap) 06/01/2027 06/01/2017, 12/02/2016, 07/15/2015 Hepatitis B Screening Completed 07/01/2019 Insurance [facility] Care Teams Skills Instructor Relationship Specialty Start Date End Date Rodriges, Genny Wilkinson NP [address] [place] [address] PCP - General 09/08/19
--- OUTSIDE RECORDS SUMMARY | 2025-11-08 08:18 | XMS_ITS | Encounter Summary ---
Author Organization [facility] Address [address] [place] [address] Care Team Providers Care Mixing Machine Operator Name Role Phone Radha Rhoades MD Primary Care Provider [phone] Reason for Visit * Reason Onset Date Comments Appointment 01/06/2015 Patient canceled appointment said she just started a new job. We offered her a new appointment 01/13/14, patient was unable to do. I gave her the phone # to [facility] availability. Patient is scheduled with us for a NT and today she is 12 weeks. Encounter Details Date Type Department Care Team (Late st Contact Info) Description 01/06/2015 Telephone [facility] [address] [place] [address] Alondra Fonseca Appointment (Patient canceled appointment said she just started a new job. We offered her a new appointment 01/13/14, patient was unable to do. [facility]. 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 [place] [address] PCP - General 07/16/21 documented as of this encounter
--- OUTSIDE RECORDS SUMMARY | 2025-11-08 08:18 | XMS_ITS | Clinical Summary ---
Author Organization [facility] Address [address] [place] [address] ERICA Sanchez [address] Phone Care Team Providers Care Helmet Hat Puncher Name Role Phone Patricia Moses MD Primary Care Provider Allergies No known active allergies Medications meclizine (ANTIVERT) 25 mg Oral tablet Take 25 mg by mouth 3 times daily as needed. Active Active Problems Problem Noted Date Diagnosed Date Abnormal vaginal bleeding 09/11/2010 Family History Relation Name Status Comments Brother Alive Father Alive Maternal Grandfather Maternal Grandmother Alive Mother Alive Paternal Grandfather Paternal Grandmother Alive Sister 1 Alive Sister 2 Alive Sister 3 Alive Social History Tobacco Use Types Packs/Day Years Used Date Smoking Tobacco: Every Day Alcohol Use Standard Drinks/Week Comments No 0 (1 standard drink = 0.6 oz pur e alcohol) Comments No Sex and Gender Information Value Date Recorded Sex Assigned at Not on file Legal Sex Female 5:45 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 Gender Identity Not on file Sexual Orientation Not on file Last Filed Vital Signs Vital Sign Reading Time Taken Comments Blood Pressure 130/90 10/20/2012 1:55 PM TUB MENDER Pulse 80 10/20/2012 1:55 PM TUB MENDER Temperature 37.4 C (99.4 F) 10/20/2012 1:55 PM TUB MENDER Respiratory Rate 16 10/20/2012 1:55 PM TUB MENDER Oxygen Saturation - - Inhaled Oxygen Concentration - - Weight 97.1 kg (214 lb) 10/20/2012 1:55 PM TUB MENDER Height 167.6 cm (5' 6) 10/20/2012 1:55 PM TUB MENDER Body Mass Index 34.54 10/20/2012 1:55 PM TUB MENDER Plan of Treatment Health Maintenance Due Date Last Done Comments DTAP/TDAP/TD VACCINES (1 - Tdap) 2013 HEPATITIS B VACCINES (1 of 3 - 19+ 3-dose series) 06/2013 HPV/Cotest (21-29) 08/31/2015 08/31/2010 CERVICAL CANCER SCREENING 2024 HPV/Cotest (30-65) 2024 08/31/2010 PAP SMEAR 2024 08/31/2010 INFLUENZA VACCINE (#1) 2025 HPV VACCINES (No Doses Required) Completed Procedures Procedure Name Priority Date/Time Associated Diagnosis Comments CERV/VAG CYTOPATH, THIN PREP IMAGR RFLX HPV Routine 08/31/2010 11:15 AM CDT from Last 3 Months or Most Recently Relevant to Health Maintenance Results * CERV/VAG CYTOPATH, THIN PREP IMAGR RFLX HPV (08/31/2010 11:15 AM CDT) REPORT STATUS FINAL [facility] CLINICAL INFORMATION [facility] Comment:Information not prov ided LAST MENSTRUAL PERIOD [facility] Comment:INFORMATION NOT PROV IDED PREV PAP: [facility] Comment:INFORMATION NOT PROV IDED PREV BX: [facility] Comment:INFORMATION NOT PROV IDED SOURCE [facility] Comment:Endocervix ADEQUACY: [facility] Comment: Satisfactory for evaluation. Endocervical/transformation zone component present. Age and/or menstrual status not provided INTERPRETATION [facility] Comment:Negative for intraep ithelial lesion or malignancy. COMMENT [facility] Comment: This Pap test has been evaluated with computer assisted technology. Based on the cytology result, reflex High Risk HPV DNA testing was not performed. PARK SUPERINTENDENT: Singular [facility] Comment: RRS, CT(ASCP) Test Performed at: [facility] [address] [place] [address] LENKA WOODS DO 08/31/2010 11:1 5 AM CDT us Patricia Moses MD PATHOLOGY/CYTOLOGY ORDERABLE S Final Result INTERFACE SYSTEM Refer to clinic/hospital department [facility] [address] [place] [address] from Last 3 Months or Most Recently Relevant to Health Maintenance Care Teams Helmet Hat Puncher Relationship Specialty Start Date End Date Patricia Moses MD PCP - General 10/11/09
[2025-11-08 08:19] VITALS: BP 148/94; PULSE 104; RESP 18; TEMP 36.3; O2SAT 99
[2025-11-08 08:40] LABS: EDCOVIDSCREEN Negative (Negative); EDINFLUASCREEN Negative (Negative); EDINFLUBSCREEN Negative (Negative); EDSTREPNEGPOS1 Negative (Negative)
--- NOTE | 2025-11-08 08:58 | ED_ITS ---
HPI - URI/Sore Throat General Chief Complaint: Upper Respiratory Infection Stated Complaint: aches/throat Time Seen by Provider: 11/08/25 08:40 Source: patient and RN notes reviewed Mode of arrival: ambulatory Limitations: no limitations History of Present Illness HPI Narrative: 30-year-old female presents Express Care complaining of sore throat and body aches since yesterday. Patient reports tactile fevers and mild congestion as well. Patient denies any other upper respiratory symptoms, nausea vomiting, diarrhea, chest pain, breathing problems, or other symptoms. Patient denies any significant past medical problems. Related Data Home Medications ?Medication ?Instructions ?Recorded ?Confirmed ?Last Taken ?Type omeprazole 20 mg capsule,delayed mg 11/08/25 Unknown History release spironolactone 100 mg tablet mg 11/08/25 Unknown Hist ory Allergies Allergy/AdvReac Type Severity Reaction Status Date / Time No Known Allergies Allergy Verified 11/08/25 08:28 Review of Systems Review of Systems: CONSTITUTIONAL: Positive for tactile fever and body aches. Negative for chills, or sweats. EYES: Denies visual changes, redness, or discharge. ENT: Denies rhinorrhea, or otalgia. Positive for sore throat and congestion CARDIOVASCULAR: Denies chest pain, palpitations, or edema. RESPIRATORY: Denies cough or dyspnea. GASTROINTESTINAL: Denies abdominal pain, nausea, vomiting, or diarrhea. GENITOURINARY: Denies dysuria or hematuria. SKIN: Denies rash or itching. MUSCULOSKELETAL: Denies back pain, joint pain, or myalgia. NEUROLOGIC: Denies headache, numbness, or weakness. PSYCHIATRIC: Denies anxiety or depression. All other systems reviewed are negative, except as documented in HPI. [facility] Past Medical History Medical History Allergy-induced asthma Seasonal allergic conjunctivitis induced hypertension ADHD UTI (urinary tract infection) Kidney stone Bronchitis Surgical History Surgical History History of hysterectomy D & C H/O lithotripsy History of surgical removal of ganglion cyst Family History Family History Mother No problems noted. Social History Social History Years smoked: 9 Smoking status: Current every day smoker Tobacco type: e-cigarettes/vaping Alcohol intake: current Drinks per week: 1 Substance use: current Substance use type: marijuana Other substance usage details: 5 TIMES A WEEK Living arrangements: with family Gender identity (if verbalized by the patient): Female Spiritual care concerns: No Comments At the time of my signature, I reviewed and agree with the nursing past medical, surgical, social, and family history. There is no relevant family history pertinent to the patient complaint. Exam Narrative: GENERAL: This is a well-nourished, well-developed adult, in no apparent distress. They are non ill-appearing, nontoxic appearing. HEAD: normocephalic, atraumatic. EYES: Sclera clear/white. Conjunctiva normal. Vision is grossly intact. Extraocular movements intact EARS: External ears normal, auditory canals clear and without drainage, TMs normal without perforation. Hearing grossly intact. NOSE: External nose normal with no obvious nasal discharge, nasal turbinates without redness, no rhinorrhea. THROAT: Mucous membranes moist, posterior pharynx erythematous red and patchy. Tonsils erythematous 2+ without exudate. Uvula midline. NECK: Neck supple, mild tender cervical lymphadenopathy, no masses or thyromegaly. CARDIOVASCULAR: Regular rate and rhythm without murmurs, gallops, or rubs. RESPIRATORY: Clear to auscultation. Breath sounds equal bilaterally. No wheezes, rales, or rhonchi. SKIN: warm, Dry, intact with no suspicious lesions or rash, good texture and turgor. NEURO: awake, alert, and oriented to person, place and time. There were no obvious focal neurologic abnormalities. EXTREMITIES: No joint tenderness, effusion, or edema noted. BACK: Nontender without deformity. Course Course Level of Care: Express Care Visit Vital Signs Vital signs: Vital Signs Temperature 97.4 F L 11/08/25 08:19 Pulse Rate 104 H 11/08/25 08:19 Respiratory Rate 18 11/08/25 08:19 Blood Pressure 148/94 H 11/08/25 08:19 Pulse Oximetry 99 11/08/25 08:19 Oxygen Delivery Room Air 11/08/25 08:19 Temperature 97.4 F L 11/08/25 08:19 Pulse Rate 104 H 11/08/25 08:19 Respiratory Rate 18 11/08/25 08:19 Blood Pressure 148/94 H 11/08/25 08:19 Pulse Oximetry 99 11/08/25 08:19 Oxygen Delivery Room Air 11/08/25 08:19 [facility] Narrative Medical decision making narrative: Rapid COVID, flu, strep were negative. Throat culture pending. Centor score 4. There is clinical suspicion strep pharyngitis she was exposed by her sister who had recently had strep throat. Through shared decision making patient like to start antibiotic therapy prior to culture results. Prescription amoxicillin sent to pharmacy. Discussed supportive care. Discussed physical exam findings. Advised supportive measures and signs/symptoms to go to the ER. Pt is appropriate for outpt treatment and f/u. Differential Diagnosis Differential Diagnosis: Differential diagnostic considerations for upper respiratory infection include upper respiratory infection, croup, otitis media, sinusitis, viral infection, bronchitis, influenza, pharyngitis, strep, uvulitis. Lab Data [facility] Lab Attestation statement: I personally reviewed the patient's lab results. Labs: Lab Results 11/08/25 Range/Units 08:39 POC Influenza A Ag Negative (Negative) POC Influenza B Ag Negative (Negative) POC SARS CoV-2 Ag Negative (Negative) POC Grp A Strep Screen Negative (Negative) Critical Care Time Critical Care Time Critical Care Time: No Discharge Plan Discharge Clinical Impression: Pharyngitis Qualifiers: Pharyngitis/tonsillitis etiology: unspecified etiology Qualified Code(s): J02.9 - Acute pharyngitis, unspecified Patient Disposition: Home Condition: Stable Instructions: Antibiotic Form, Pharyngitis (ED) Additional Instructions: Your rapid COVID, flu, strep were negative a throat culture is pending if it is positive for strep you will be contacted. There is clinical suspicion you may have strep throat. Please take the amoxicillin as prescribed until gone. ?You will be contagious for 24 hours after starting the medication. ?After 24 hours on antibiotics throw tooth brush away and start using a new one. Wash your sheets and cup/water bottle that is used daily. Do not share drinks. Take Tylenol or Ibuprofen for pain or fever, follow instructions on the bottle. ?Rest and stay hydrated. ?Follow up with your PCP in 3 days if symptoms are not improving. ?Go to the ER immediately if you develop worsening symptoms such as shortness of breath, difficulty swallowing, chest pain, vomiting, any worsening symptoms or serious concerns.. ? Patient Language: Iranian Prescriptions: New amoxicillin 500 mg tablet 500 mg PO Q12H 10 Days Qty: 20 0RF No Action spironolactone 100 mg tablet omeprazole 20 mg capsule,delayed release(/EC) Follow-up/Referrals: Rodriges,Genny Polanco APN [Primary Care Provider, Unknown] Time of Disposition: 08:56
== END 2025-11-08 09:05 | disposition home or self-care (01) ==
PROVIDERS: PCP Nurse Practitioner Family
DX: J02.9 Acute pharyngitis, unspecified (principal); Z20.822 Contact with and (suspected) exposure to COVID-19; F17.290 Nicotine dependence, other tobacco product, uncomplicated; F12.90 Cannabis use, unspecified, uncomplicated; J45.909 Unspecified asthma, uncomplicated
CPT/HCPCS: 87081; 87426; 87804; 87880; 99213; G0463